=== PATIENT | female | born 1975 | race Caucasian/White ===

== ENCOUNTER 2019-11-17 21:57 | Emergency (ER) | payer SELFPAY ==
[2019-11-17 22:04] VITALS: BP 134/88; PULSE 84; RESP 18; TEMP 36.1; O2SAT 99; BMI 29.0
--- NOTE | 2019-11-17 22:08 | ED_ITS ---
HPI - Extremity Injury (Upper) General: Chief Complaint: Extremity Injury, Upper Stated Complaint: left and injury Time Seen by Provider: 11/17/19 22:07 Source: patient Mode of arrival: ambulatory Limitations: no limitations History of Present Illness: HPI narrative: 44-year-old female comes in with injury to the left hand. Patient reports striking her refrigerator this silvana jeff. Patient comes in tonight due to increased swelling and bruising. Patient appears well. Patient appears in mild to moderate pain. Review of Systems General: Reports: 10 or more systems reviewed and unremarkable except in HPI and below Musc: Reports: extremity pain and extremity swelling [facility] ED PFSH: Social History Smoking and tobacco status: current every day smoker Physical Exam Const: COMMON NORMALS: no apparent distress and oriented x3 GENERAL APPEARANCE: cooperative HENMT: COMMON NORMALS: normocephalic, TM's normal bilaterally and external nose normal HEAD & SCALP: normal to inspection and normocephalic NOSE: external nose normal TYMPANIC MEMBRANE: TM's normal bilaterally MOUTH: oral and palatal mucosa normal THROAT: posterior oropharynx normal Eye: GENERAL EYE: normal appearance of both eyes Neck/C-Spine: COMMON NORMALS: full ROM Lymph: LYMPHATIC: no lymphadenopathy noted Chest: COMMONS NORMALS: inspection of chest normal Resp: COMMON NORMALS: normal respiratory effort EFFORT & INSPECTION: Yes able to speak in complete sentences Cardio: COMMON NORMALS: regular rate and regular rhythm RATE: regular rate RHYTHM: regular rhythm GI: COMMON NORMALS: non-tender : COMMON NORMALS: Yes no CVA tenderness BLADDER/KIDNEY EXAM: Yes no CVA tenderness Back/Pelvis: COMMON NORMALS: no CVA tenderness and thoracic and lumbar spine normal to inspection Extremity: NARRATIVE EXTREMITY EXAM: Swelling and bruising to the dorsal left hand. Normal capillary refill distally. Guarded movement due to pain. Normal warmth and sensation is noted. Neuro: COMMON NORMALS: oriented x3 and moves all extremities Psych: COMMON NORMALS: mental status grossly normal and cooperative Skin: COMMON NORMALS: no rashes or lesions noted GENERAL SKIN EXAM: no rashes or lesions noted Course Vital Signs: Vital signs: Vital Signs Temperature 97.0 F L 11/17/19 22:04 Pulse Rate 84 11/17/19 22:04 Respiratory Rate 18 11/17/19 22:04 Blood Pressure 134/88 11/17/19 22:04 Pulse Oximetry 99 11/17/19 22:04 MDM - Extremity Injury (Upper) MDM Narrative: Medical decision making narrative: Patient comes in today for complaints of injury to the left hand. Patient reports striking her refrigerator this morning and since that time has had increased bruising and swelling to the left hand. On exam we have ecchymosis and central bruising to the dorsal left hand involving the third digit. Prompt capillary refill is noted distally. Guarded movement due to pain. Pulses are intact. X-ray noted no fracture, or dislocation. No sign of open injury was noted. A large contusion with swelling was noted. Reviewed exam with patient recommended treatment for contusion with need for follow-up or return. Patient reported understanding. Discharge Plan Discharge Patient Disposition: Home, Self-Care Clinical Impression: Contusion of hand, left Qualifiers: Encounter type: initial encounter Qualified Code(s): S60.222A - Contusion of left hand, initial encounter Condition: Stable Prescriptions: No Action No Known Home Medications RF: 0 Discharge Orders: Discharge Order (Routine); Ordered 11/17/19 Ordered By: Pranav Comer Referrals: Krystyna Lehman, HERB-C [Primary Care Provider] - Discharge Diet: Usual diet Discharge Activity: Increase activity as tolerated Patient Instructions: Contusion in Adults (ED) Activity Restrictions/Additional Instructions: Wear elastic wrap until swelling resolves Increase activity as tolerated Ice or heat for comfort Acetaminophen and ibuprofen for pain Follow-up as needed Return to ER for worsening symptoms Coding Level of Care Code ED Animal Cruelty Investigation Supervisor for Jhonathan Roman Exam Comprehensive
--- NOTE | 2019-11-17 22:12 | XR_ITS ---
WS: [id number] LEFT HAND: 3 VIEW(S) TECHNIQUE: PA, oblique and lateral. HISTORY: injury COMPARISON: 12/05/2018 No acute fracture or dislocation. Soft tissue swelling over the dorsal hand at the level of the metacarpals. Prior fixation distal radial fracture. XR/XR hand LT min 3V* [id number] IMPRESSION: 1. No acute fracture identified. 2. Soft tissue edema over the dorsal hand.
[2019-11-17 22:55] VITALS: BP 130/87; PULSE 79; RESP 14; O2SAT 98
== END 2019-11-17 22:56 | disposition home or self-care (01) ==
PROVIDERS: Emergency Provider Nurse Practitioner Family; Family Provider Nurse Practitioner; PCP Nurse Practitioner
DX: S60.222A Contusion of left hand, initial encounter (principal); W22.8XXA Striking against or struck by other objects, initial encounter; F17.210 Nicotine dependence, cigarettes, uncomplicated; M79.89 Other specified soft tissue disorders
CPT/HCPCS: 12345; 73130; 99281; 99283

== ENCOUNTER 2020-12-04 11:54 | Emergency (ER) | payer SELFPAY ==
[2020-12-04 12:02] VITALS: BP 132/88; PULSE 79; RESP 18; TEMP 36.6; O2SAT 96; BMI 28.1
--- NOTE | 2020-12-04 12:06 | ED_ITS ---
HPI - Dental/Oral General: Chief complaint: Dental/Oral Stated complaint: R SIDE OF FACE SWOLLEN Time Seen by Provider: 12/04/20 12:06 History of Present Illness: HPI Narrative: Patient comes in with swelling and upper dental pain to the right side of face. Patient appears well. Patient appears in mild to moderate pain. Patient reports symptoms for the last 3 days. Patient has not been on any antibiotic. Patient has been using [id number] Motrin for discomfort. Location: Tooth # (6) Onset (ago): day(s) Duration: intermittent Severity: moderate Relieving factors: NSAIDs Exacerbating factors: nothing Context: history of dental caries Associated symptoms: Reports gum swelling Treatment prior to arrival: oral analgesic Review of Systems General: Reports: 10 or more systems reviewed and unremarkable except in HPI and below ENMT: Reports: dental pain and other [facility] ED PFSH: Social History Smoking and tobacco status: current every day smoker Physical Exam Const: COMMON NORMALS: no acute distress and patient oriented x3 GENERAL APPEARANCE: cooperative HENMT: COMMON NORMALS: TM's normal bilaterally and Normal external nose present HEAD & SCALP: normal to inspection and other (Right side facial swelling) NOSE: Normal external nose present TYMPANIC MEMBRANE: TM's normal bilaterally MOUTH: Normal oral and palatal mucosa present TEETH & GINGIVA: Yes other (Significant tooth decay, decayed to the gumline of #6 tooth with surroundin) THROAT: posterior oropharynx normal Eye: GENERAL EYE: appearance normal, both eyes and all related structures Neck/C-Spine: COMMON NORMALS: full ROM Lymph: LYMPHATIC: no lymphadenopathy noted Chest: COMMONS NORMALS: normal inspection of the chest Resp: COMMON NORMALS: normal respiratory effort EFFORT & INSPECTION: Yes able to speak in complete sentences Cardio: COMMON NORMALS: regular rate and regular rhythm RATE: regular rate RHYTHM: regular rhythm GI: COMMON NORMALS: non-tender Extremity: COMMON NORMALS: normal to inspection Neuro: COMMON NORMALS: patient oriented x3 and moves all extremities Psych: COMMON NORMALS: mental status grossly normal and cooperative Skin: COMMON NORMALS: no rashes or lesions noted GENERAL SKIN EXAM: no rashes or lesions noted Course Vital Signs: Vital signs: Vital Signs Temperature 97.8 F 12/04/20 12:02 Pulse Rate 79 12/04/20 12:02 Respiratory Rate 18 12/04/20 12:02 Blood Pressure 132/88 12/04/20 12:02 Pulse Oximetry 96 12/04/20 12:02 MDM - Dental/Oral MDM Narrative: Medical decision making narrative: 45-year-old female comes in today with right side facial swelling. On exam we note no posterior pharyngeal swelling or asymmetry. Patient does have some gum swelling to the premolar of the right upper jaw with tenderness. Patient does have right side upper facial swelling. Airway is intact. Patient manages secretions well. Differential diagnosis includes dental abscess, dental caries, sinusitis. Patient will be started on Augmentin 875 1 tablet twice daily for the next 7 days. Patient was given one dose in the ER and 10 mg dexamethasone to help with facial swelling. Reviewed exam and recommendations for treatment and follow-up. Stressed importance of dental care and follow-up with dentist. Patient reported understanding. Discharge Plan Discharge Patient Disposition: Home Clinical Impression: Dental abscess Condition: Stable Prescriptions: New Augmentin 875-125 mg tablet 1 tab PO BID Qty: 14 RF: 0 Discharge Orders: Discharge ED (Routine); Ordered 12/04/20 Ordered By: Pranav Comer Referrals: Krystyna Lehman, BUILDING ANALYST/SUPERVISOR-C [Primary Care Provider] - Discharge Diet: Usual diet Discharge Activity: Resume usual activity Patient Instructions: Dental Abscess (ED), Opioid Safety Activity Restrictions/Additional Instructions: Drink plenty of water with medication. Take antibiotic twice a day for the next 7 days. Follow-up with dentist for definitive care. Return to the emergency department for new concerns. Coding Level of Care Code ED Flex O Writer Operator for Jhonathan Roman
[2020-12-04] MEDS: dexamethasone 4 mg Tablet 10 MG PO (12:23)
[2020-12-04] MEDS: amoxicillin-clav 875-125 mg Tablet 1 TAB PO (12:23)
== END 2020-12-04 12:34 | disposition home or self-care (01) ==
LOC: ER 12:46
PROVIDERS: Emergency Provider Nurse Practitioner Family; PCP Nurse Practitioner
DX: K04.7 Periapical abscess without sinus (principal); F17.210 Nicotine dependence, cigarettes, uncomplicated
CPT/HCPCS: 99283; J8540

== ENCOUNTER 2021-08-10 13:06 | Emergency (ER) | payer SELFPAY ==
[2021-08-10 13:33] VITALS: BP 112/78; PULSE 87; RESP 18; TEMP 36.8; O2SAT 97; BMI 29.0
--- NOTE | 2021-08-10 13:33 | XR_ITS ---
WS: [id number] Portable AP upright chest, 08/10/2021 Clinical Data: sob Comparison: Portable chest, 07/04/2018. Findings: No nodules, masses or effusions are seen. The heart is normal. The pulmonary vascularity is not increased. No pneumonia or pneumothorax is seen. XR/XR chest 1V portable [id number] Impression: Negative chest.
[2021-08-10 14:24] LABS: Basophils % 0.5 %; Eosinophils # 0.1 10^3/uL (0.0-0.8); Eosinophils % 1.1 %; Hematocrit 39.3 % (37.0-47.0); Hemoglobin 13.1 g/dL (11.5-15.3); Lymphocytes # 1.2 10^3/uL (0.8-4.8); Lymphocytes % 19.2 %; Mean Corpuscular HGB Conc 33.3 g/dL (30.0-36.0); Mean Corpuscular Hemoglobin 33.3 pg (28.0-34.0); Mean Platelet Volume 9.9 fL (7.4-10.4); Monocytes # 0.4 10^3/uL (0.2-0.9); Neutrophils # 4.41 10^3/uL (1.8-7.7); Neutrophils % 71.9 %; Nucleated Red Blood Cells % 0 %; Platelet Count 168 10^3/cmm (130-400); Red Blood Count 3.93 10^6/uL (4.1-5.3); Red Cell Distribution Width 14.5 % (12.1-15.1); White Blood Count 6.1 10^3/uL (4.0-10.0)
[2021-08-10 14:41] LABS: HCG, Serum Qual Negative (Negative)
[2021-08-10 14:44] LABS: Alanine Aminotransferase 343 U/L (0-33); Albumin Level 4.2 g/dL (3.5-5.2); Alkaline Phosphatase 201 IU/L (35-105); Anion Gap 19.2 (5-19); Aspartate Amino Transferase 486 U/L (0-32); Blood Urea Nitrogen 8 mg/dL (6-20); Calcium 8.3 mg/dL (8.5-10.5); Carbon Dioxide 23 mmol/L (22-29); Chloride 101 mmol/L (98-107); Globulin 2.8 g/dL (1.3-4.6); Glomerular Filtration Rate 174.2 mL/min (90-130); Glucose 95 mg/dL (65-115); Osmolality Calculated 288 mOsm/kg (285-295); Potassium 3.2 mmol/L (3.5-5.1); Sodium 140 mmol/L (136-145); Total Bilirubin 0.2 mg/dL (0.15-1.2)
[2021-08-10 14:51] LABS: Procalcitonin 0.03 ng/mL (0-0.5)
[2021-08-10 15:44] LABS: Hepatitis A Antibody IgM Non-Reactive (Nonreactive); Hepatitis B Core IgM Non-Reactive (Nonreactive); Hepatitis B Surface Antigen Non-Reactive (Nonreactive); Hepatitis C Virus Antibody Reactive (Nonreactive)
--- NOTE | 2021-08-10 18:26 | ECG_ITS ---
[facility] Test Date: 2021-08-10 Pat Name: Adriana Presley Department: Room: Gender: Female [employer] Field Agent: : [id number] Requested By: Demarcus Singleton Order Number: [id number] Hough MD: Clarisse Smiley M.D. Measurements Intervals [place] Rate: 79 P: 18 [place]: 142 QRS: -5 QRSD: 99 T: 34 QT: 408 QTc: 470 Interpretive Statements SINUS RHYTHM MINIMAL VOLTAGE CRITERIA FOR LVH, CONSIDER NORMAL VARIANT [MEETS CRITERIA IN ONE OF: R(aVL), S(V1), R(V5), R(V5/V6)+S(V1)] Compared to ECG 07/04/2018 23:24:11 No significant changes Electronically Signed On 08-11-2021 20:32:55 MOUNTAIN SERVICES MANAGER by Clarisse Smiley M.D. [email or web address]
--- NOTE | 2021-08-10 18:31 | W.ED.SOB ---
HPI - SOB/Dyspnea General: Chief Complaint: Shortness of Breath/Dyspnea Stated Complaint: sob Time Seen by Provider: 08/10/21 18:21 Source: patient Mode of arrival: ambulatory Limitations: no limitations History of Present Illness: HPI Narrative: 35-year-old female who states been having right-sided chest pain over the last week to 2 weeks. States the very sharp pain in her right lateral chest much worse with deep breaths movement or palpation. States it caused her some dyspnea because it hurts when she takes a deep breath then no nausea no vomiting no diaphoresis no recent long trips no recent surgeries MD elicited complaint: chest pain Onset (ago): week(s) Timing: constant Severity: moderate Exacerbating factors: movement and inspiration Relieving factors: rest Associated symptoms: Reports chest pain; Deny abdominal pain, fever(s), nausea or vomiting Review of Systems Const: Denies: fever(s), chills, body aches or change in appetite Eyes: Denies: blurry vision or eye discomfort ENMT: Denies: throat pain or dental pain Card: Reports: chest pain Resp: Reports: dyspnea GI: Denies: abdominal pain, nausea, vomiting or diarrhea : Denies: dysuria Musc: Denies: neck pain or back pain Skin/Breast: Denies: rash Neuro: Denies: headache(s) Psych: Denies: depression Duong/Lymph: Denies: easy bruising All/Imm: Denies: urticaria PFSH ED PFSH: Family History (Updated 08/10/21 @ 18:33 by Demarcus Singleton MD) Denies family history of Anesthesia complication Bleeding disorder Social History Smoking and tobacco status: current every day smoker Physical Exam Const: COMMON NORMALS: no acute distress, patient oriented x3 and healthy appearing HENMT: COMMON NORMALS: normocephalic and atraumatic HEAD & SCALP: normocephalic and atraumatic Eye: COMMON NORMALS: Equal, round and reactive pupils present and EOMs intact bilaterally PUPIL: Yes Equal, round and reactive pupils present Neck/C-Spine: COMMON NORMALS: full ROM and supple Chest: COMMONS NORMALS: normal inspection of the chest OTHER: point tender over right chest reproduces pain Resp: COMMON NORMALS: normal respiratory effort, No retractions, No use of accessory muscles and clear to auscultation bilaterally AUSCULTATION: clear to auscultation bilaterally Cardio: COMMON NORMALS: regular rate, regular rhythm and No murmurs present (Cardio) RATE: regular rate RHYTHM: regular rhythm GI: COMMON NORMALS: Normal to inspection, nondistended, normoactive bowel sounds present, Soft to palpation, non-tender and no masses PALPATION: Yes Soft to palpation Extremity: COMMON NORMALS: normal to inspection and full ROM Neuro: COMMON NORMALS: patient oriented x3, moves all extremities and no focal motor deficits Psych: COMMON NORMALS: mental status grossly normal, Normal thought process present and cooperative THOUGHT PROCESS: Normal thought process present Skin: COMMON NORMALS: no rashes or lesions noted and no wounds GENERAL SKIN EXAM: no rashes or lesions noted Course Vital Signs: Vital signs: Vital Signs Temperature 98.2 F 08/10/21 18:45 Pulse Rate 78 08/10/21 18:45 Respiratory Rate 18 08/10/21 18:45 Blood Pressure 156/105 08/10/21 18:45 Pulse Oximetry 99 08/10/21 18:45 MDM - SOB/Dyspnea MDM Narrative: Medical decision making narrative: Patient presents for chest pain is likely muscular in nature she is point tender over the right chest wall. Patient is well-appearing here troponins are normal she has no signs of pulmonary embolism x-ray here is normal she has not been following anyone for hepatitis C we will get her follow-up with Dr. Carreno she is to return if worsening. Lab Data: Labs: Lab Results 08/10/21 08/10/21 08/10/21 14:15 14:15 14:15 WBC 6.1 10^3/uL 10^3/ uL (4.0-10.0) RBC 3.93 10^6/uL L 10 ^6/uL (4.1-5.3) Hgb 13.1 g/dL g/dL (11.5-15.3) Hct 39.3 % % (37.0-47.0) MCV 100.0 fl H fl (81-99) MCH 33.3 pg pg (28.0-34.0) MCHC 33.3 g/dL g/dL (30.0-36.0) RDW 14.5 % % (12.1-15.1) Plt Count 168 10^3/cmm 10^3 /cmm (130-400) MPV 9.9 fL fL (7.4-10.4) Neut % (Auto) 71.9 % % Lymph % (Auto) 19.2 % % Divide % (Auto) 7.0 % % Eos % (Auto) 1.1 % % Baso % (Auto) 0.5 % % Neut # (Auto) 4.41 10^3/uL 10^3 /uL (1.8-7.7) Lymph # (Auto) 1.2 10^3/uL 10^3/ uL (0.8-4.8) Divide # (Auto) 0.4 10^3/uL 10^3/ uL (0.2-0.9) Eos # (Auto) 0.1 10^3/uL 10^3/ uL (0.0-0.8) Baso # (Auto) 0.0 10^3/uL 10^3/ uL (0.0-0.1) Nucleated RBC % (a uto) 0 % % Nucleated RBCs # 0.0 /100WBC /100W BC Sodium 140 mmol/L mmol/L (136-145) Potassium 3.2 mmol/L L mmol /L (3.5-5.1) Chloride 101 mmol/L mmol/L (98-107) Carbon Dioxide 23 mmol/L mmol/L (22-29) Anion Gap 19.2 H (5-19) BUN 8 mg/dL mg/dL (6-20) Creatinine 0.4 mg/dL L mg/dL (0.5-0.9) GFR Calculation 174.2 mL/min H mL /min (90-130) Glucose 95 mg/dL mg/dL (65-115) Calculated Osmolal ity 288 mOsm/kg mOsm/ kg (285-295) Calcium 8.3 mg/dL L mg/dL (8.5-10.5) Total Bilirubin 0.2 mg/dL mg/dL (0.15-1.2) AST 486 U/L H U/L (0-32) ALT 343 U/L H U/L (0-33) Alkaline Phosphata se 201 IU/L H IU/L (35-105) Troponin T Baselin e Troponin T 120 Min telida Delta Troponin T Total Protein 7.0 g/dL g/dL (6.6-8.7) Albumin 4.2 g/dL g/dL (3.5-5.2) Globulin 2.8 g/dL g/dL (1.3-4.6) Procalcitonin 0.03 ng/mL ng/mL (0-0.5) HCG, Qual Negative (Negative) Hepatitis A IgM Ab Hep Bs Antigen Hep B Core IgM Ab Hepatitis C Antibo dy 08/10/21 08/10/21 08/10/21 14:15 14:15 18:41 WBC RBC Hgb Hct MCV MCH MCHC RDW Plt Count MPV Neut % (Auto) Lymph % (Auto) Div[place] % (Auto) Eos % (Auto) Baso % (Auto) Neut # (Auto) Lymph # (Auto) [place] # (Auto) Eos # (Auto) Baso # (Auto) Nucleated RBC % (a uto) Nucleated RBCs # Sodium Potassium Chloride Carbon Dioxide Anion Gap BUN Creatinine GFR Calculation Glucose Calculated Osmolal ity Calcium Total Bilirubin AST ALT Alkaline Phosphata se Troponin T Baselin e 6 ng/L ng/L (0-10) Troponin T 120 Min telida 6.00 ng/L ng/L (0-10) Delta Troponin T TNP Total Protein Albumin Globulin Procalcitonin HCG, Qual Hepatitis A IgM Ab Non-reactive (Nonreactive) Hep Bs Antigen Non-reactive (Nonreactive) Hep B Core IgM Ab Non-reactive (Nonreactive) Hepatitis C Antibo dy Reactive H (Nonreactive) Imaging Data^: CXR: Attestation: I personally reviewed and interpreted this imaging study as follows: My impression: no acute abnormality EKG Data^: EKG 1: Attestation: I personally reviewed and interpreted this EKG as follows: EKG Interpretation Date: 08/10/21 EKG interpretation time: 18:27 Interpretation: nsr hr [address] or t wave abnormalities qrs 99 qtc 443 Discharge Plan Discharge Patient Disposition: Home Clinical Impression: Chest wall pain, Hepatitis C Condition: Stable Prescriptions: New Naprosyn 500 mg tablet 500 mg PO BID PRN (Reason: pain) Qty: 20 RF: 0 Vistaril 50 mg capsule 50 mg PO Q8H PRN (Reason: anxiety) Qty: 20 RF: 0 No Action Augmentin 875-125 mg tablet 1 tab PO BID Qty: 14 RF: 0 diclofenac potassium 50 mg tablet 50 mg PO Q8H PRN (Reason: pain) Qty: 10 RF: 0 Discharge Orders: Discharge ED (Routine); Ordered 08/10/21 Ordered By: Demarcus Singleton Referrals: Owen Carreno MD [Physician] - 1-3 days Discharge Diet: Advance as tolerated Discharge Activity: Resume usual activity Patient Instructions: Hepatitis C (ED), Chest Wall Pain (ED) Coding Level of Care Code ED Recycling Operator for Chg Fwd Exam Comprehensive
[2021-08-10 18:41] VITALS: RESP 18
[2021-08-10] MEDS: morphine 4 mg/mL SDV 1 mL IVP (18:41)
[2021-08-10] MEDS: ondansetron 2 mg/ML SDV 2 mL 4 MG IVP (18:42)
[2021-08-10 18:45] VITALS: BP 156/105; PULSE 78; RESP 18; TEMP 36.8; O2SAT 99
--- NOTE | 2021-08-10 18:49 | PC.NURSE ---
patient arrival with c/o SOB and increased pain with respirations. reports N/V/D today. reports cough but can not get up phlegm. states s/s started 2 weeks ago. right chest wall tender to palptaion. IV staerted blood sent to lab. tele in place.
[2021-08-10 19:00] LABS: Troponin(5th) Baseline 6 ng/L (0-10)
[2021-08-10 19:49] VITALS: RESP 18; TEMP 37.1
[2021-08-10 19:50] VITALS: BP 126/86; PULSE 72; RESP 18; TEMP 36.8; O2SAT 98
--- NOTE | 2021-08-12 10:49 | PC.SOCIAL ---
Addendum entered by Nahomi Salinas 09/09/21 10:12: Patient had a follow up appointment scheduled for 08.25.21 - this appointment was cancelled. Original Note: follow up appointment made for patient with Dr. Carreno for 08-25 @1400. Called and gave pt appointment date and time along with directions to clinic.
== END 2021-08-10 19:52 | disposition home or self-care (01) ==
PROVIDERS: Physician Assistant; Emergency Provider Emergency Medicine
DX: R07.89 Other chest pain (principal); B19.20 Unspecified viral hepatitis C without hepatic coma; F17.210 Nicotine dependence, cigarettes, uncomplicated
CPT/HCPCS: 36415; 71045; 80053; 80074; 84145; 84484; 84703; 85025; 93005; 96374; 96375; 99284; 99291; 99292; J2270; J2405

== ENCOUNTER 2021-08-26 00:01 | Inpatient (IN) | payer SELFPAY ==
[2021-08-26] VITALS (9 sets, daily range): BP systolic 100–135; BP diastolic 64–81; PULSE 67–84; RESP 17–18; TEMP 36.6–37; O2SAT 95–99; BMI 31.3
--- NOTE | 2021-08-26 00:39 | W.ED.PSYCHS ---
HPI - Psych General: Chief Complaint: Psychiatric Symptoms Stated Complaint: SI Time Seen by Provider: 08/26/21 00:12 Source: patient Mode of arrival: ambulatory Limitations: no limitations History of Present Illness: HPI Narrative: 45-year-old female who please recalled residence that she was suicidal patient had a knife and was threatening to cut her left wrist and attempt to kill her self patient states that she has been severely depressed and just does not want to live anymore. She states she was going to cut her wrist to kill her self. She denies any worsening improving factors. Associated symptoms: Reports suicidal ideation Review of Systems Const: Denies: fever(s), chills, body aches or change in appetite Eyes: Denies: blurry vision or eye discomfort ENMT: Denies: throat pain or dental pain Card: Denies: chest pain Resp: Denies: dyspnea GI: Denies: abdominal pain, nausea, vomiting or diarrhea : Denies: dysuria Musc: Denies: neck pain or back pain Skin/Breast: Denies: rash Neuro: Denies: headache(s) Psych: Reports: suicidal ideation Duong/Lymph: Denies: easy bruising All/Imm: Denies: urticaria PFSH ED PFSH: Family History Denies family history of Anesthesia complication Bleeding disorder Social History Smoking and tobacco status: current every day smoker Physical Exam Const: COMMON NORMALS: no acute distress, patient oriented x3 and healthy appearing HENMT: COMMON NORMALS: normocephalic and atraumatic HEAD & SCALP: normocephalic and atraumatic Eye: COMMON NORMALS: Equal, round and reactive pupils present and EOMs intact bilaterally PUPIL: Yes Equal, round and reactive pupils present Neck/C-Spine: COMMON NORMALS: full ROM and supple Chest: COMMONS NORMALS: normal inspection of the chest and normal palpation of entire chest wall Resp: COMMON NORMALS: normal respiratory effort, No retractions, No use of accessory muscles and clear to auscultation bilaterally AUSCULTATION: clear to auscultation bilaterally Cardio: COMMON NORMALS: regular rate, regular rhythm and No murmurs present (Cardio) RATE: regular rate RHYTHM: regular rhythm GI: COMMON NORMALS: Normal to inspection, nondistended, normoactive bowel sounds present, Soft to palpation, non-tender and no masses PALPATION: Yes Soft to palpation Extremity: COMMON NORMALS: normal to inspection and full ROM Neuro: COMMON NORMALS: patient oriented x3, moves all extremities and no focal motor deficits Psych: COMMON NORMALS: mental status grossly normal, Normal thought process present and cooperative THOUGHT PROCESS: Normal thought process present Skin: COMMON NORMALS: no rashes or lesions noted and no wounds GENERAL SKIN EXAM: no rashes or lesions noted Course Vital Signs: Vital signs: Vital Signs Temperature 97.8 F 08/26/21 01:18 Pulse Rate 80 08/26/21 01:18 Respiratory Rate 18 08/26/21 01:18 Blood Pressure 135/74 08/26/21 01:18 Pulse Oximetry 95 08/26/21 01:18 MDM - Psych Lab Data: Labs: Lab Results 08/26/21 08/26/21 08/26/21 00:52 00:52 00:58 WBC RBC Hgb Hct MCV MCH MCHC RDW Plt Count MPV Neut % (Auto) Lymph % (Auto) [place] % (Auto) Eos % (Auto) Baso % (Auto) Neut # (Auto) Lymph # (Auto) [place] # (Auto) Eos # (Auto) Baso # (Auto) Nucleated RBC % (a uto) Nucleated RBCs # Sodium 140 mmol/L mmol/L (136-145) Potassium 3.2 mmol/L L mmol /L (3.5-5.1) Chloride 103 mmol/L mmol/L (98-107) Carbon Dioxide 19 mmol/L L mmol/ L (22-29) Anion Gap 21.2 H (5-19) BUN 6 mg/dL mg/dL (6-20) Creatinine 0.3 mg/dL L mg/dL (0.5-0.9) GFR Calculation 242.8 mL/min H mL /min (90-130) Glucose 102 mg/dL mg/dL (65-115) Calculated Osmolal ity 288 mOsm/kg mOsm/ kg (285-295) Calcium 8.7 mg/dL mg/dL (8.5-10.5) Total Bilirubin 0.3 mg/dL mg/dL (0.15-1.2) AST 146 U/L H U/L (0-32) ALT 93 U/L H U/L (0-33) Alkaline Phosphata se 176 IU/L H IU/L (35-105) Total Protein 7.4 g/dL g/dL (6.6-8.7) Albumin 4.6 g/dL g/dL (3.5-5.2) Globulin 2.8 g/dL g/dL (1.3-4.6) HCG, Qual Negative (Negative) Salicylates < 0.3 mg/dL L mg/ dL (3-10) Urine Opiates Scre en Negative ng/mL ng /mL (Negative) Acetaminophen < 5.0 ug/mL L ug/ mL (10-30) Ur Barbiturates Sc reen Negative ng/mL ng /mL (Negative) Ur Phencyclidine S crn Negative ng/mL ng /mL (Negative) Ur Amphetamines Sc reen Negative ng/mL ng /mL (Negative) U Benzodiazepines Scrn Negative ng/mL ng /mL (Negative) Urine Cocaine Scre en Negative ng/mL ng /mL (Negative) U Marijuana (THC) Screen Negative ng/mL ng /mL (Negative) Ethyl Alcohol 310 mg/dL H* mg/d L (0-10) 08/26/21 00:58 WBC 7.3 10^3/uL 10^3/ uL (4.0-10.0) RBC 4.58 10^6/uL 10^6 /uL (4.1-5.3) Hgb 15.4 g/dL H g/dL (11.5-15.3) Hct 48.4 % H % (37.0-47.0) MCV 105.7 fl H fl (81-99) MCH 33.6 pg pg (28.0-34.0) MCHC 31.8 g/dL g/dL (30.0-36.0) RDW 14.0 % % (12.1-15.1) Plt Count 194 10^3/cmm 10^3 /cmm (130-400) MPV 10.5 fL H fL (7.4-10.4) Neut % (Auto) 57.2 % % Lymph % (Auto) 32.6 % % [place] % (Auto) 8.3 % % Eos % (Auto) 1.1 % % Baso % (Auto) 0.7 % % Neut # (Auto) 4.15 10^3/uL 10^3 /uL (1.8-7.7) Lymph # (Auto) 2.4 10^3/uL 10^3/ uL (0.8-4.8) [place] # (Auto) 0.6 10^3/uL 10^3/ uL (0.2-0.9) Eos # (Auto) 0.1 10^3/uL 10^3/ uL (0.0-0.8) Baso # (Auto) 0.1 10^3/uL 10^3/ uL (0.0-0.1) Nucleated RBC % (a uto) 0 % % Nucleated RBCs # 0.0 /100WBC /100W BC Sodium Potassium Chloride Carbon Dioxide Anion Gap BUN Creatinine GFR Calculation Glucose Calculated Osmolal ity Calcium Total Bilirubin AST ALT Alkaline Phosphata se Total Protein Albumin Globulin HCG, Qual Salicylates Urine Opiates Scre en Acetaminophen Ur Barbiturates Sc reen Ur Phencyclidine S crn Ur Amphetamines Sc reen U Benzodiazepines Scrn Urine Cocaine Scre en U Marijuana (THC) Screen Ethyl Alcohol Discharge Plan Discharge Patient Disposition: Admitted As Inpatient Clinical Impression: Suicidal ideation Condition: Stable Coding Level of Care Code ED Steel Erector Apprentice for Jhonathan Fwd Exam Comprehensive
[2021-08-26 01:04] LABS: Basophils # 0.1 10^3/uL (0.0-0.1); Basophils % 0.7 %; Eosinophils # 0.1 10^3/uL (0.0-0.8); Eosinophils % 1.1 %; Hematocrit 48.4 % (37.0-47.0); Hemoglobin 15.4 g/dL (11.5-15.3); Lymphocytes # 2.4 10^3/uL (0.8-4.8); Lymphocytes % 32.6 %; Mean Corpuscular HGB Conc 31.8 g/dL (30.0-36.0); Mean Corpuscular Hemoglobin 33.6 pg (28.0-34.0); Mean Corpuscular Volume 105.7 fl (81-99); Mean Platelet Volume 10.5 fL (7.4-10.4); Monocytes # 0.6 10^3/uL (0.2-0.9); Monocytes % 8.3 %; Neutrophils # 4.15 10^3/uL (1.8-7.7); Neutrophils % 57.2 %; Nucleated Red Blood Cells % 0 %; Platelet Count 194 10^3/cmm (130-400); Red Blood Count 4.58 10^6/uL (4.1-5.3); White Blood Count 7.3 10^3/uL (4.0-10.0)
[2021-08-26 01:08] LABS: HCG Qualitative Urine. Negative (Negative)
[2021-08-26] MEDS: LORazepam 1 mg Tablet 2 MG PO (01:18)
[2021-08-26] MEDS: nicotine 21 mg Patch 1 PATCH TRANSDERMA (01:18)
[2021-08-26 01:24] LABS: Alanine Aminotransferase 93 U/L (0-33); Albumin Level 4.6 g/dL (3.5-5.2); Alkaline Phosphatase 176 IU/L (35-105); Anion Gap 21.2 (5-19); Aspartate Amino Transferase 146 U/L (0-32); Blood Urea Nitrogen 6 mg/dL (6-20); Calcium 8.7 mg/dL (8.5-10.5); Carbon Dioxide 19 mmol/L (22-29); Chloride 103 mmol/L (98-107); Globulin 2.8 g/dL (1.3-4.6); Glomerular Filtration Rate 242.8 mL/min (90-130); Glucose 102 mg/dL (65-115); Osmolality Calculated 288 mOsm/kg (285-295); Potassium 3.2 mmol/L (3.5-5.1); Sodium 140 mmol/L (136-145); Total Bilirubin 0.3 mg/dL (0.15-1.2); Total Protein 7.4 g/dL (6.6-8.7)
[2021-08-26 01:25] LABS: Acetaminophen < 5.0 ug/mL (10-30); Salicylate < 0.3 mg/dL (3-10)
[2021-08-26 01:26] LABS: Alcohol Level 310 mg/dL (0-10)
[2021-08-26 01:33] LABS: Amphetamines Screen Urine Negative (Negative); Barbiturates Screen Urine Negative (Negative); Benzodiazepines Screen Urine Negative (Negative); Cocaine Screen Urine Negative (Negative); Opiate Screen Urine Negative (Negative); PCP Screen Urine Negative (Negative); THC Screen Urine Negative (Negative)
[2021-08-26] MEDS: ketorolac 30 mg/mL INJ 15 MG IVP (02:30)
[2021-08-26] MEDS: hyDROXYzine 25 mg Capsule 50 MG PO ×3 (04:07→20:49)
[2021-08-26] MEDS: folic acid 1 mg Tablet PO (09:26)
[2021-08-26] MEDS: multivitamin therapeutic Tablet 1 TAB PO (09:26)
[2021-08-26] MEDS: thiamine 100 mg Tablet PO (09:26)
--- NOTE | 2021-08-26 12:33 | P.NPUHP_ITS ---
Providers/Chief Complaint Admitting Physician: Miguel David MD Chief Complaint: SI HPI NPU History of Present Illness Adriana Presley is a 45 year old female who was admitted to our emergency department through the following report: General: Chief Complaint: Psychiatric Symptoms Stated Complaint: SI Time Seen by Provider: 08/26/21 00:12 Source: patient Mode of arrival: ambulatory Limitations: no limitations History of Present Illness: HPI Narrative: 45-year-old female who please recalled residence that she was suicidal patient had a knife and was threatening to cut her left wrist and attempt to kill her self patient states that she has been severely depressed and just does not want to live anymore. She states she was going to cut her wrist to kill her self. She denies any worsening improving factors. Associated symptoms: Reports suicidal ideation She was admitted for definitive treatment of her issues. She says that she has been drinking heavily since 2008 when her brother was killed in a motor vehicle accident. He was on her way to a birthday republican for her that he was throwing. She felt guilty about that for a number of years. 3 years ago she attempted suicide by slashing her wrist with a traffic engineering technician knife. She got rid of the traffic engineering technician knives in her house. Last year was a bad year for her with some deaths in the family and she lost her job. She says about 2 weeks ago she prayed and have a revelation that she needed to stop drinking and spending so much money on alcohol so that she could have a better life. She was drinking a 1.5 L bottle of whiskey a day up until that point. She said that she had been doing that most of the time for the last 12 years. She cut down to a pint per day for the last few days. She had a plan to stop drinking. She has had uterine cancer pre viously and had a hysterectomy. That cancer diagnosis started with a phone call about blood work. She got a phone call yesterday with some bad news about blood work yesterday. They said that her enzymes were down and that her white blood count was low. She panicked and said something about that she was going to . Her significant other misinterpreted that and thought that she said that she was going to cut herself with a knife. At least that is what she is saying now. She denies having any depression recently. She says that she has been functioning well and is excited about not drinking. Blood alcohol level was 305 in the emergency room. She says that she only had 4 shots of whiskey yesterday. Meds NPU Home Medications Medication Instructions Recorded Confirmed Last Taken Type No Known Home Medications 08/26/21 08/26/21 Unknown History Allergies Allergy/AdvReac Type Severity Reaction Status Date / Time No Known Allergies Allergy Verified 08/10/21 13:33 PFSH NPU PFSH: Family History Denies family history of Anesthesia complication Bleeding disorder Social History Smoking and tobacco status: current every day smoker Mental Status Exam MSE Comments: This is a 45-year-old overweight female who appears approximately her stated age who is in no acute distress. He is dressed in hospital scrubs with fair grooming. She is pleasant and cooperative with the evaluation. psychomotor activity normal. Speech is at a regular rate and rhythm, normal volume, good articulation, not pressured. Alert, oriented X3 Attention and concentration good. Memory is intact Mood is good. Affect is euthymic. Thought process is logical and goal-directed. Thought content: Denies auditory and visual hallucinations. No delusions or paranoia are noted. No current suicidal ideation, and no homicidal ideation. Fund of knowledge is average. Insight and judgment appear to be impaired. Impulse control is impaired. Vitals/I&O/Wt Last Vital Signs Temp 98.2 F 08/26/21 06:40 Pulse 83 08/26/21 06:40 Resp 18 08/26/21 06:40 BP 100/64 08/26/21 06:40 Pulse Ox 99 08/26/21 06:40 Weight last 48 hrs Weight 90.718 kg Data NPU : 08/26/21 00:58 08/26/21 00:58 A&P Assessment and plan (1) Alcohol dependence: Status: Acute Qualifiers: Substance use status: with intoxication Complication of substance-ayesha evelyne condition: uncomplicated Qualified Code(s): F10.220 - Alcohol dependence with intoxication, uncomplicated (2) Suicidal ideation: Status: Acute Involuntary Hold Information 96 Hour Hold: 96 Hour Involuntary Admission: Yes 96 Hour Hold Ending Date: 09/01/21 96 Hour Hold Ending Time: 00:25 Attestations NPU Medical Necessity Statement*: Inpatient hospitalization is medically necessary and the clinically appropriate intervention at this time. We will initiate medications and make changes as indicated. She will be in the hospital for over 2 midnights. Likely length of stay 4-6 days Coding Level of Care Code Acute Sales Merchandise Associate for Jhonathan Roman Diagnoses Alcohol dependence F10.220 Substance use status: with intoxication Complication of substance-induced condition: uncomplicated Suicidal ideation R45.85
--- NOTE | 2021-08-26 12:49 | PC.NURSE ---
pt c/o anxiety and requested medication to treat symptoms, PO vistaril given. will continue to monitor
[2021-08-26] MEDS: nicotine 2 mg Gum BUCCAL (17:18)
[2021-08-26] MEDS: trazodone 50 mg Tablet PO (20:49)
--- NOTE | 2021-08-27 02:54 | PC.NURSE ---
PRN administration Patient c/o of trouble sleeping and restlessness. Requested PRN trazodone and hydroxyzine PO, given as ordered with noted effectiveness.
[2021-08-27 06:00] VITALS: BP 121/86; PULSE 71; RESP 20; TEMP 36.6; O2SAT 98
[2021-08-27] MEDS: folic acid 1 mg Tablet PO (09:12)
[2021-08-27] MEDS: multivitamin therapeutic Tablet 1 TAB PO (09:12)
[2021-08-27] MEDS: thiamine 100 mg Tablet PO (09:12)
[2021-08-27] MEDS: nicotine 21 mg Patch 1 PATCH TRANSDERMA (09:29)
--- NOTE | 2021-08-27 11:51 | W.PM.NPUDCS ---
Diagnoses at Discharge Discharge Diagnosis (1) Alcohol dependence: Status: Acute Qualifiers: Substance use status: with intoxication Complication of substance-induced condition: uncomplicated Qualified Code(s): F10.220 - Alcohol dependence with intoxication, uncomplicated (2) Suicidal ideation: Status: Acute Reason for Visit Reason for Visit: SI Brief History: Adriana Presley is a 45 year old female who was admitted to our emergency department through the following report: General: Chief Complaint: Psychiatric Symptoms Stated Complaint: SI Time Seen by Provider: 08/26/21 00:12 Source: patient Mode of arrival: ambulatory Limitations: no limitations History of Present Illness: HPI Narrative: 45-year-old female who please recalled residence that she was suicidal patient had a knife and was threatening to cut her left wrist and attempt to kill her self patient states that she has been severely depressed and just does not want to live anymore. She states she was going to cut her wrist to kill her self. She denies any worsening improving factors. Associated symptoms: Reports suicidal ideation She was admitted for definitive treatment of her issues. She says that she has been drinking heavily since 2008 when her brother was killed in a motor vehicle accident. He was on her way to a birthday republican for her that he was throwing. She felt guilty about that for a number of years. 3 years ago she attempted suicide by slashing her wrist with a latin american studies professor knife. She got rid of the latin american studies professor knives in her house. Last year was a bad year for her with some deaths in the family and she lost her job. She says about 2 weeks ago she prayed and have a revelation that she needed to stop drinking and spending so much money on alcohol so that she could have a better life. She was drinking a 1.5 L bottle of whiskey a day up until that point. She said that she had been doing that most of the time for the last 12 years. She cut down to a pint per day for the last few days. She had a plan to stop drinking. She has had uterine cancer previously and had a hysterectomy. That cancer diagnosis started with a phone call about blood work. She got a phone call yesterday with some bad news about blood work yesterday. They said that her enzymes were down and that her white blood count was low. She panicked and said something about that she was going to . Her significant other misinterpreted that and thought that she said that she was going to cut herself with a knife. At least that is what she is saying now. She denies having any depression recently. She says that she has been functioning well and is excited about not drinking. Blood alcohol level was 305 in the emergency room. She says that she only had 4 shots of whiskey yesterday. Hospital Course Hospital Course She slowly acclimated to the individual, group and milieu therapies provided. She was observed just on as needed medications. She felt that the trazodone was helpful. She did not need Ativan for alcohol withdrawal. She showed steady improvement during her stay. She was able to contract for safety outside hospital prior to discharge. During the hospitalization, patient had routine laboratory studies which were within normal limits except for few outliers. Additionally there was a general medical evaluation which was also within normal limits and revealed no new acute processes. Discharge Summary: At the time of discharge, lethality was denied. Mood and anxiety were well managed. Patient endorsed a plan to follow-up with the aftercare recommendations of the treatment team. Patient was evaluated and deemed to be absent credible lethality, and had achieved the maximum benefit from an inpatient hospitalization, so was discharged. Involuntary Hold Information 96 Hour Hold: 96 Hour Involuntary Admission: Yes 96 Hour Hold Ending Date: 09/01/21 96 Hour Hold Ending Time: 00:25 Mental Status Exam MSE Comments: This is a 45-year-old overweight female who appears approximately her stated age who is in no acute distress. He is dressed in hospital scrubs with fair grooming. She is pleasant and cooperative with the evaluation. psychomotor activity normal. Speech is at a regular rate and rhythm, normal volume, good articulation, not pressured. Alert, oriented X3 Attention and concentration good. Memory is intact Mood is good. Affect is euthymic. Thought process is logical and goal-directed. Thought content: Denies auditory and visual hallucinations. No delusions or paranoia are noted. No current suicidal ideation, and no homicidal ideation. Fund of knowledge is average. Insight and judgment appear to be impaired. Impulse control is impaired. Cognition: Patient Appearance: Appropriate Level of Consciousness: Awake, Alert, Appropriate and Follows Commands Patient Cognition Impaired: No Ability to Follow Directions: Good Patient Orientation (long list): Person, Place, Time and Name Comprehension Ability: No Impairment Hallucination Type: None Delusion Description: Not Present Thought Process: Appropriate Affect: Affect Description: Calm Depressive Symptoms: Feelings of Worthlessness, Hopelessness and Unhappiness Behavior: Patient Behavior: Cooperative Speech Pattern: Clear Discharge Data Vitals: Last Vital Signs Temp 98 F 08/27/21 06:00 Pulse 71 08/27/21 06:00 Resp 20 H 08/27/21 06:00 BP 121/86 08/27/21 06:00 Pulse Ox 98 08/27/21 06:00 Discharge Plan Discharge Patient Disposition: Home Condition: Stable Prescriptions: New trazodone 50 mg Tablet 50 mg PO BEDTIME PRN (Reason: Sleep) 30 Days Qty: 30 RF: 0 No Action No Known Home Medications RF: 0 Discharge Orders: Discharge Order (Routine); Ordered 08/27/21 Ordered By: Miguel David Referrals: [facility] [Other] Discharge Diet: Regular Discharge Activity: Resume usual activity Patient Instructions: Opioid Safety Discharge Attestations NPU Time Spent in Discharge Care*: less than 30 min Specific Discharge Activities: Specific discharge activities: educating patient, discussing with bilingual case manager/social workers/dc planners, documenting/other paperwork and evaluating patient/reviewing data Coding Level of Care Code Acute Chg FW DC note Diagnoses Alcohol dependence F10.220 Substance use status: with intoxication Complication of substance-induced condition: uncomplicated Suicidal ideation R45.852
[2021-08-27 12:10] VITALS: BP 121/86; PULSE 71; RESP 20; TEMP 36.6; O2SAT 98
== END 2021-08-27 13:29 | disposition home or self-care (01) | DRG 897 ==
LOC: ER 02:03 → NP 02:14
PROVIDERS: Admitting Provider Psychiatry & Neurology Psychiatry; Emergency Provider Emergency Medicine; Visit Provider Psychiatry & Neurology Psychiatry
DX: F10.229 Alcohol dependence with intoxication, unspecified (principal); R45.851 Suicidal ideations; Y90.8 Blood alcohol level of 240 mg/100 ml or more; F32.A Depression, unspecified; F17.210 Nicotine dependence, cigarettes, uncomplicated; Z85.42 Personal history of malignant neoplasm of other parts of uterus; Z90.710 Acquired absence of both cervix and uterus
CPT/HCPCS: 80053; 80306; 80307; 81025; 85025; 90686; 96372; 97150; 97165; 99285; J1885; J3411

== ENCOUNTER 2022-11-11 20:17 | Emergency (ER) | payer SELFPAY ==
--- NOTE | 2022-11-11 20:20 | XRR_ITS ---
PROCEDURE INFORMATION: Exam: XR Chest Exam date and time: 11/11/2022 8:27 PM Age: 47 years old Clinical indication: Pain; Chest pressure; Additional info: Chest pain TECHNIQUE: Imaging protocol: Radiologic exam of the chest. Views: 1 view. COMPARISON: CT chest diegol w/*[id number] 07/04/2018 6:38 PM FINDINGS: Lungs: No consolidation. Pleural spaces: No pleural effusion. No pneumothorax. Heart/Mediastinum: No cardiomegaly. Bones/joints: Unremarkable. XR/XR chest 1V portable [id number] IMPRESSION: No acute abnormality demonstrated.
[2022-11-11 20:22] VITALS: BP 139/84; PULSE 77; RESP 18; O2SAT 93
--- NOTE | 2022-11-11 20:25 | ECG_ITS ---
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 Measurements Intervals [place] Rate: 74 P: 22 LA: 146 QRS: -28 QRSD: 114 T: -3 QT: 444 QTc: 494 Interpretive Statements SINUS RHYTHM VOLTAGE CRITERIA FOR LVH [MEETS CRITERIA IN ONE OF: R(aVL), S(V1), R(V5), R(V5/V6)+S(V1)] POSSIBLE ANTERIOR MYOCARDIAL INFARCTION , OF INDETERMINATE AGE [30 ms Q WAVE IN V3/V4, OR R < 0.2 mV IN V4] Compared to ECG 08/10/2021 18:27:49 Myocardial infarct finding now present Electronically Signed On 11-12-2022 22:13:48 CDT by Charlene Polanco M.D. [id number] f
--- NOTE | 2022-11-11 20:25 | ECG_ITS ---
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 Measurements Intervals [place] Rate: 74 P: 22 NV: 146 QRS: -28 QRSD: 114 T: -3 QT: 444 QTc: 494 Interpretive Statements SINUS RHYTHM VOLTAGE CRITERIA FOR LVH [MEETS CRITERIA IN ONE OF: R(aVL), S(V1), R(V5), R(V5/V6)+S(V1)] POSSIBLE ANTERIOR MYOCARDIAL INFARCTION , OF INDETERMINATE AGE [30 ms Q WAVE IN V3/V4, OR R < 0.2 mV IN V4] Compared to ECG 08/10/2021 18:27:49 Myocardial infarct finding now present Electronically Signed On 11-12-2022 21:57:50 CDT by Charlene Polanco M.D. [id number] f
--- NOTE | 2022-11-11 20:30 | ED_ITS ---
HPI - Chest Pain General: Chief Complaint: Chest Pain Stated Complaint: CP Time Seen by Provider: 11/11/22 20:18 History of Present Illness: Patient presents here to the ER by EMS with complaints of chest pain, syncope, carpal spasms. Patient states she was having anxiety attack and felt she could not catch her breath She know she passed out and her friends were doing CPR on her. Patient does have carpal spasms and says she has tingling in her face. MD complaint: chest pain and other (Panic attack, syncope) Timing of current episode: episodic and now resolved Prior episodes: Yes Onset: other (During anxiety) Relieving factors: nothing Exacerbating factors: stress Associated symptoms: Reports dyspnea and other (Syncope carpal spasms angling in the face); Deny abdominal pain, fever(s), nausea, palpitations or vomiting Treatment prior to arrival: other (EMS gave her 2 mg Ativan) Review of Systems General: Reports: 10 or more systems reviewed and unremarkable except in HPI and below Const: Denies: fever(s) or chills Eyes: Denies: change in vision ENMT: Denies: throat pain or odynophagia Card: Reports: chest pain; Denies: palpitations, irregular heart rhythm or edema Resp: Reports: dyspnea; Denies: productive cough or non-productive cough GI: Denies: abdominal pain, nausea, vomiting or diarrhea : Denies: flank pain or difficulty voiding Musc: Denies: neck pain or back pain Skin/Breast: Denies: rash or pruritus Neuro: Denies: headache(s), numbness in extremities or weakness in extremities Psych: Reports: anxiety and panic attacks; Denies: depression Endo: Denies: polyuria or polydipsia Duong/Lymph: Denies: easy bruising or easy bleeding All/Imm: Denies: urticaria or throat swelling PFSH ED PFSH: Family History Denies family history of Anesthesia complication Bleeding disorder Social History Smoking and tobacco status: current every day smoker Physical Exam Const: COMMON NORMALS: no acute distress, average body habitus, patient horacio ented x3, no limitations, healthy appearing, alert and well nourished HENMT: COMMON NORMALS: normocephalic, atraumatic, hearing grossly normal stephanie aterally, external ears normal, Normal external nose present and moist oral mucous membranes HEAD & SCALP: normocephalic and atraumatic NOSE: Normal external nose present EXTERNAL EAR: Yes external ears normal Eye: COMMON NORMALS: Equal, round and reactive pupils present and EOMs intact bilaterally PUPIL: Yes Equal, round and reactive pupils present Neck/C-Spine: COMMON NORMALS: full ROM, no lymphadenopathy, supple, no meningeal signs, no JVD and Thyroid normal THYROID: Thyroid normal Chest: COMMONS NORMALS: normal inspection of the chest and normal palpation of entire chest wall Resp: COMMON NORMALS: normal respiratory effort, No retractions, No use of accessory muscles and clear to auscultation bilaterally AUSCULTATION: clear to auscultation bilaterally Cardio: COMMON NORMALS: no JVD, regular rate, regular rhythm, S1 normal heart sound present, S2 normal heart sound present, No gallops present (Cardio), No clicks present (Cardio) and No murmurs present (Cardio) RATE: regular rate RHYTHM: regular rhythm HEART SOUNDS: S1 normal heart sound present and S2 normal heart sound present GI: COMMON NORMALS: Normal to inspection, nondistended, normoactive bowel sounds present, Soft to palpation, non-tender, No hepatosplenomegaly present and no masses PALPATION: Yes Soft to palpation and Yes No hepatosplenomegaly present : COMMON NORMALS: Yes no CVA tenderness BLADDER/KIDNEY EXAM: Yes no CVA tenderness Back/Pelvis: COMMON NORMALS: no CVA tenderness Extremity: OTHER: Mild bilateral carpal spasm Neuro: COMMON NORMALS: patient oriented x3 SENSORIUM/ORIENTATION: Yes alert MENINGEAL SIGNS: Yes no meningeal signs Psych: COMMON NORMALS: mental status grossly normal APPEARANCE: Yes disheveled ATTITUDE: Yes Other attitude/behavior findings present (Psych) (Anxious) Course Vital Signs: Vital signs: Vital Signs Pulse Rate 66 11/11/22 22:13 Respiratory Rate 17 11/11/22 22:13 Blood Pressure 97/63 11/11/22 22:13 Pulse Oximetry 98 11/11/22 22:13 Oxygen Delivery Me thod 11/11/22 22:13 MDM - Chest Pain Medical Decision Making Patient presents to the ER with complaints that she passed out for a panic attack and bystanders started CPR on her. Patient is complaining of chest pain as well as carpal spasms and is under the intoxication of alcohol. Upon further review of history and physical exam as well as lab work that revealed a white count of 11.0 potassium 3.4 sodium 148 AST and ALT of 35 troponin baseline of 12 troponin 2-hour of 16.5 with a delta of 4.5, blood alcohol of 253, an ABG that showed pH was 7.4 PCO2 45 PO2 of 59 and a bicarb of 28.5 it is felt that patient probably had a panic attack and hyperventilated and passed out. Then bystanders performed CPR and until patient regained consciousness. Patient is under the influence of alcohol. Is felt this had a major contributing factor. Patient has a ride home with her parents. Patient will be discharged home to follow-up with her primary care practitioner in the next week. Differential Diagnosis Unlikely acute massive pulmonary embolism, acute respiratory failure, acute myocardial infarction, cardiac arrest or sudden cardiac Lab Data 11/11/22 20:20 11/11/22 20:20 Radiology Impressions Chest X-Ray 11/11/22 20:20 IMPRESSION: No acute abnormality demonstrated. Laboratory Results WBC 11.0 10^3/uL (4.0-10.0) H 11/11/22 20:20 RBC 4.07 10^6/uL (4.1-5.3) L 11/11/22 20:20 Hgb 13.0 g/dL (11.5-15.3) 11/11/22 20:20 Hct 39.7 % (37.0-47.0) 11/11/22 20:20 MCV 97.5 fl (81-99) 11/11/22 20:20 MCH 31.9 pg (28.0-34.0) 11/11/22 20:20 MCHC 32.7 g/dL (30.0-36.0) 11/11/22 20:20 RDW 14.3 % (12.1-15.1) 11/11/22 20:20 Plt Count 243 10^3/cmm (130-400) 11/11/22 20:20 MPV 9.5 fL (7.4-10.4) 11/11/22 20:20 Neut % (Auto) 67.2 % 11/11/22 20:20 Lymph % (Auto) 23.6 % 11/11/22 20:20 Lucas % (Auto) 7.7 % 11/11/22 20:20 Eos % (Auto) 0.8 % 11/11/22 20:20 Baso % (Auto) 0.4 % 11/11/22 20:20 Neut # (Auto) 7.39 10^3/uL (1.8-7.7) 11/11/22 20:20 Lymph # (Auto) 2.6 10^3/uL (0.8-4.8) 11/11/22 20:20 Lucas # (Auto) 0.8 10^3/uL (0.2-0.9) 11/11/22 20:20 Eos # (Auto) 0.1 10^3/uL (0.0-0.8) 11/11/22 20:20 Baso # (Auto) 0.0 10^3/uL (0.0-0.1) 11/11/22 20:20 Nucleated RBC % (auto) 0 % 11/11/22 20:20 Nucleated RBCs # 0.0 /100WBC 11/11/22 20:20 PT 12.70 SECONDS (12.1-14.9) 11/11/22 20:20 INR 0.92 (0.8-1.2) 11/11/22 20:20 Specimen Type Arterial 11/11/22 21:06 Sample Site Radial, right 11/11/22 21:06 ABG pH 7.40 (7.35-7.45) 11/11/22 21:06 ABG pCO2 45.9 mmHg (35-45) H 11/11/22 21:06 ABG pO2 59.5 mmHg (80.0-100.0) L 11/11/22 21:06 ABG HCO3 28.5 mmol/L (22-26) H 11/11/22 21:06 ABG O2 Saturation 89.6 11/11/22 21:06 ABG Base Excess 3.0 mmol/L (-2.0-2.0) H 11/11/22 21:06 Fausto Test Pos 11/11/22 21:06 A-a O2 Gradient 4.5 mmHg (5-10) L 11/11/22 21:06 Hematocrit 40.7 % (37-47) 11/11/22 21:06 Hgb O2 Saturation 85.2 % (95-100) L 11/11/22 21:06 Carboxyhemoglobin 4.1 %THgb (0.4-20.1) 11/11/22 21:06 Methemoglobin 0.8 % (0.4-1.5) 11/11/22 21:06 Total Hemoglobin 13.3 g/dL (12-16) 11/11/22 21:06 Sodium 151.0 mmol/L (131-143) H 11/11/22 21:06 Potassium 3.2 mmol/L (3.5-5.0) L 11/11/22 21:06 Glucose 97.0 mg/dL (70-115) 11/11/22 21:06 Ionized Calcium 1.1 mmol/L (1.1-1.4) 11/11/22 21:06 O2 Delivery Device None 11/11/22 21:06 FiO2 21.0 % 11/11/22 21:06 Core Drill Operator Helper ID [email or web address] 11/11/22 21:06 Sodium 148 mmol/L (136-145) H 11/11/22 20:20 Potassium 3.4 mmol/L (3.5-5.1) L 11/11/22 20:20 Chloride 108 mmol/L (98-107) H 11/11/22 20:20 Carbon Dioxide 25 mmol/L (22-29) 11/11/22 20:20 Anion Gap 18.4 (5-19) 11/11/22 20:20 BUN 11 mg/dL (6-20) 11/11/22 20:20 Creatinine 0.5 mg/dL (0.5-0.9) 11/11/22 20:20 GFR Calculation 133.4 mL/min (90-130) H 11/11/22 20:20 Glucose 96 mg/dL (65-115) 11/11/22 20:20 Calculated Osmolality 305 mOsm/kg (285-295) H 11/11/22 20:20 Calcium 8.5 mg/dL (8.5-10.5) 11/11/22 20:20 Total Bilirubin 0.2 mg/dL (0.15-1.2) 11/11/22 20:20 AST 35 U/L (0-32) H 11/11/22 20:20 ALT 35 U/L (0-33) H 11/11/22 20:20 Alkaline Phosphatase 78 U/L (35-105) 11/11/22 20:20 Troponin T Baseline 12 ng/L (0-10) H 11/11/22 20:20 Troponin T 120 Minute 16.59 ng/L (0-10) H 11/11/22 22:12 Delta Troponin T 4.59 ABS# (0-10) 11/11/22 22:12 Total Protein 6.4 g/dL (6.6-8.7) L 11/11/22 20:20 Albumin 4.2 g/dL (3.5-5.2) 11/11/22 20:20 Globulin 2.2 g/dL (1.3-4.6) 11/11/22 20:20 HCG, Qual Negative (Negative) 11/11/22 20:20 Ethyl Alcohol 253 mg/dL (0-10) H 11/11/22 20:20 Discharge Plan Discharge Patient Disposition: Home Clinical Impression: Chest pain, Alcohol intoxication, Acute hyperventilation Condition: Stable Prescriptions: No Action No Known Home Medications Discharge Orders: Discharge ED (Routine); Ordered 11/11/22 Ordered By: Woodrow Lyon Discharge Diet: Advance as tolerated Discharge Activity: Resume usual activity Patient Instructions: Chest Pain (ED), Hyperventilation (ED) Coding Level of Care Code ED Oracle Application Consultant for Jhonathan Roman
[2022-11-11 20:32] LABS: Basophils % 0.4 %; Eosinophils # 0.1 10^3/uL (0.0-0.8); Eosinophils % 0.8 %; Hematocrit 39.7 % (37.0-47.0); Lymphocytes # 2.6 10^3/uL (0.8-4.8); Lymphocytes % 23.6 %; Mean Corpuscular HGB Conc 32.7 g/dL (30.0-36.0); Mean Corpuscular Hemoglobin 31.9 pg (28.0-34.0); Mean Corpuscular Volume 97.5 fl (81-99); Mean Platelet Volume 9.5 fL (7.4-10.4); Monocytes # 0.8 10^3/uL (0.2-0.9); Monocytes % 7.7 %; Neutrophils # 7.39 10^3/uL (1.8-7.7); Neutrophils % 67.2 %; Nucleated Red Blood Cells % 0 %; Platelet Count 243 10^3/cmm (130-400); Red Blood Count 4.07 10^6/uL (4.1-5.3); Red Cell Distribution Width 14.3 % (12.1-15.1)
[2022-11-11 20:43] LABS: INR 0.92 (0.8-1.2)
[2022-11-11 20:48] LABS: Alanine Aminotransferase 35 U/L (0-33); Albumin Level 4.2 g/dL (3.5-5.2); Alkaline Phosphatase 78 U/L (35-105); Anion Gap 18.4 (5-19); Aspartate Amino Transferase 35 U/L (0-32); Blood Urea Nitrogen 11 mg/dL (6-20); Calcium 8.5 mg/dL (8.5-10.5); Carbon Dioxide 25 mmol/L (22-29); Chloride 108 mmol/L (98-107); Globulin 2.2 g/dL (1.3-4.6); Glomerular Filtration Rate 133.4 mL/min (90-130); Glucose 96 mg/dL (65-115); Osmolality Calculated 305 mOsm/kg (285-295); Potassium 3.4 mmol/L (3.5-5.1); Sodium 148 mmol/L (136-145); Total Bilirubin 0.2 mg/dL (0.15-1.2); Total Protein 6.4 g/dL (6.6-8.7)
[2022-11-11 20:49] LABS: Troponin(5th) Baseline 12 ng/L (0-10)
[2022-11-11 20:50] LABS: Alcohol Level 253 mg/dL (0-10)
[2022-11-11 21:04] LABS: HCG, Serum Qual Negative (Negative)
--- NOTE | 2022-11-11 21:07 | PC.NURSE ---
Lab reported HCG Serum was negative then after 5 minutes reported it was positive. Lab stated they would report it as negative. Dr Lyon was notified of the results.
[2022-11-11 21:15] LABS: ABG PCO2 45.9 mmHg (35-45); Alveolar-Arterial Oxygen Gradi 4.5 mmHg (5-10); Arterial Blood Gas Hematocrit 40.7 % (37-47); Blood Gas Allen Test Pos; Blood Gas Sample Type Arterial; Carboxyhemoglobin 4.1 %THgb (0.4-20.1); HCO3 ABG 28.5 mmol/L (22-26); HGB O2 Sat 85.2 % (95-100); Ionized Calcium Level - ABG 1.1 mmol/L (1.1-1.4); Methemoglobin 0.8 % (0.4-1.5); Oxygen Saturation ABG 89.6; PO2 ABG 59.5 mmHg (80.0-100.0); Potassium Level - ABG 3.2 mmol/L (3.5-5.0); Total Hemoglobin 13.3 g/dL (12-16)
[2022-11-11 21:17] LABS: Blood Gas Sample Site Radial, right
[2022-11-11 22:13] VITALS: BP 97/63; PULSE 66; RESP 17; O2SAT 98
[2022-11-11 22:29] LABS: Troponin 5 2HR 16.59 ng/L (0-10)
[2022-11-11 22:30] VITALS: BP 96/55; PULSE 63; RESP 17; O2SAT 98
[2022-11-11 22:31] LABS: Troponin 5 2HR Delta 4.59 ABS# (0-10)
[2022-11-11 23:04] VITALS: BP 103/79; PULSE 73; RESP 17; O2SAT 97
--- NOTE | 2022-11-16 14:43 | DCPLANNER ---
traffic manager called patient due to no primary care physician - no answer at this time.
== END 2022-11-11 23:06 | disposition home or self-care (01) ==
PROVIDERS: Emergency Provider Emergency Medicine
DX: R07.9 Chest pain, unspecified (principal); F10.129 Alcohol abuse with intoxication, unspecified; Y90.8 Blood alcohol level of 240 mg/100 ml or more; R06.4 Hyperventilation; F17.210 Nicotine dependence, cigarettes, uncomplicated
CPT/HCPCS: 36600; 71045; 80051; 80053; 80307; 82330; 82805; 84484; 84703; 85025; 85610; 93005; 99285

== ENCOUNTER 2023-01-28 08:59 | Emergency (ER) | payer SELFPAY ==
[2023-01-28 09:02] VITALS: BP 136/88; PULSE 85; RESP 16; TEMP 36.7; O2SAT 92; BMI 29.0
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
[2023-01-28 10:06] LABS: Basophils % 0.9 %; Eosinophils # 0.1 10^3/uL (0.0-0.8); Hematocrit 44.4 % (37.0-47.0); Hemoglobin 14.9 g/dL (11.5-15.3); Lymphocytes # 1.4 10^3/uL (0.8-4.8); Lymphocytes % 30.9 %; Mean Corpuscular HGB Conc 33.6 g/dL (30.0-36.0); Mean Corpuscular Hemoglobin 32.7 pg (28.0-34.0); Mean Corpuscular Volume 97.4 fl (81-99); Mean Platelet Volume 9.3 fL (7.4-10.4); Monocytes # 0.6 10^3/uL (0.2-0.9); Monocytes % 12.8 %; Neutrophils # 2.41 10^3/uL (1.8-7.7); Neutrophils % 53.2 %; Nucleated Red Blood Cells % 0 %; Platelet Count 254 10^3/cmm (130-400); Red Blood Count 4.56 10^6/uL (4.1-5.3); Red Cell Distribution Width 14.7 % (12.1-15.1); White Blood Count 4.5 10^3/uL (4.0-10.0)
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
[2023-01-28 10:24] LABS: Alanine Aminotransferase 36 U/L (0-33); Albumin Level 4.9 g/dL (3.5-5.2); Alkaline Phosphatase 91 U/L (35-105); Anion Gap 21.1 (5-19); Aspartate Amino Transferase 51 U/L (0-32); Blood Urea Nitrogen 10 mg/dL (6-20); Calcium 8.9 mg/dL (8.5-10.5); Carbon Dioxide 23 mmol/L (22-29); Chloride 102 mmol/L (98-107); Globulin 2.9 g/dL (1.3-4.6); Glomerular Filtration Rate 240.6 mL/min (90-130); Glucose 99 mg/dL (65-115); Osmolality Calculated 295 mOsm/kg (285-295); Potassium 3.1 mmol/L (3.5-5.1); Sodium 143 mmol/L (136-145); Total Bilirubin 0.3 mg/dL (0.15-1.2); Total Protein 7.8 g/dL (6.6-8.7)
[2023-01-28 10:38] LABS: Alcohol Level 361 mg/dL (0-10)
[2023-01-28 10:41] VITALS: BP 136/88; PULSE 72; RESP 16; O2SAT 93
== END 2023-01-28 10:43 | disposition home or self-care (01) ==
PROVIDERS: Emergency Provider Family Medicine
DX: S02.2XXA Fracture of nasal bones, initial encounter for closed fracture (principal); F17.210 Nicotine dependence, cigarettes, uncomplicated; F10.20 Alcohol dependence, uncomplicated; Y04.2XXA Assault by strike against or bumped into by another person, initial encounter
CPT/HCPCS: 36415; 70450; 70486; 72125; 80053; 80307; 85025; 99284

== ENCOUNTER 2023-12-08 21:43 | Emergency (ER) | payer SELFPAY ==
[2023-12-08] VITALS (10 sets, daily range): BP systolic 146–182; BP diastolic 100–130; PULSE 80–105; RESP 14–22; TEMP 36.4; O2SAT 91–100; BMI 29.0
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
[2023-12-08 22:02] LABS: Basophils # 0.1 10^3/uL (0.0-0.1); Basophils % 0.5 %; Eosinophils # 0.1 10^3/uL (0.0-0.8); Eosinophils % 0.8 %; Lymphocytes # 1.9 10^3/uL (0.8-4.8); Lymphocytes % 19.1 %; Mean Corpuscular HGB Conc 33.6 g/dL (30-55); Mean Corpuscular Hemoglobin 35.1 pg (27-33); Mean Corpuscular Volume 104.3 fl (85-98); Mean Platelet Volume 10.2 fL (7.4-10.4); Neutrophils # 6.81 10^3/uL (1.8-7.7); Neutrophils % 69.3 %; Nucleated Red Blood Cells % 0 %; Platelet Count 214 10^3/cmm (157-399); Red Blood Count 4.22 10^6/uL (3.85-5.65); Red Cell Distribution Width 14.6 % (12.1-15.1); White Blood Count 9.83 10^3/uL (3.29-11.43)
[2023-12-08] MEDS: succinylcholine 20 mg/mL SDV 10mL 100 MG IVP (22:05)
[2023-12-08] MEDS: etomidate 2 mg/mL INJ SDV 10 mL 20 MG IVP (22:05)
[2023-12-08 22:13] LABS: Alanine Aminotransferase 44 U/L (0-33); Albumin Level 4.4 g/dL (3.5-5.2); Alkaline Phosphatase 97 U/L (35-105); Anion Gap 21.9 (5-19); Aspartate Amino Transferase 59 U/L (0-32); Blood Urea Nitrogen 8 mg/dL (6-20); Calcium 8.6 mg/dL (8.5-10.5); Carbon Dioxide 17 mmol/L (22-29); Chloride 103 mmol/L (98-107); Creatinine Clr Calc Pharmacy 151.4522; Globulin 3.2 g/dL (1.3-4.6); Glomerular Filtration Rate 132.8 mL/min (90-130); Glucose 125 mg/dL (65-115); Osmolality Calculated 288 mOsm/kg (285-295); Sodium 139 mmol/L (136-145); Total Bilirubin 0.4 mg/dL (0.15-1.2); Total Protein 7.6 g/dL (6.6-8.7)
[2023-12-08] MEDS: propofol 1,000 MG/100 ML INJ 2.45000000000000018 MG IV (22:14)
[2023-12-08] MEDS: fentaNYL 1,000 MCG/100 ML BAG 2.5 MCG IV (22:19)
[2023-12-08 22:23] LABS: INR 0.89 (0.8-1.2)
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
[2023-12-08 22:24] LABS: Partial Thromboplastin Time 26.6 SECONDS (23.9-36.7)
[2023-12-08] MEDS: lactated ringers 1,000 ML 200 ML IV (22:28)
[2023-12-08 22:30] LABS: Potassium 2.9 mmol/L (3.5-5.1)
[2023-12-08 22:38] LABS: ABG PCO2 36.7 mmHg (35-45); ABG PH Result 7.35 (7.35-7.45); Arterial Blood Gas Hematocrit 47.9 % (37-47); Base Excess ABG -4.5 mmol/L (-2.0-2.0); Blood Gas Allen Test Pos; Blood Gas Operator Identificat glc; Blood Gas Sample Site Radial, left; Blood Gas Sample Type Arterial; Blood Gas Tidal Volume 0.45; HCO3 ABG 20.4 mmol/L (22-26); Oxygen Device VENT; PO2 FiO2 Ratio Arterial Blood 0
[2023-12-08 22:41] LABS: Blood Gas CCRB Time 2230
--- NOTE | 2023-12-08 23:11 | PC.NURSE ---
Propofol sent with air evac.
--- NOTE | 2023-12-09 00:07 | PC.NURSE ---
RSI AND PROCEEDING EVENTS 2204-- 20MG ETOMIDATE 2204-- 100MG SUCCS 2205-- 25@LIP 2213-- PROPOFOL STARTED @5 WITH 40 LOADING DOSE 2218-- FENTANYL STARTED PER PROTOCOL 2223-- SOFT RESTRAINTS APPLIED PER VERBAL OF DR PETERSEN
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
== END 2023-12-09 00:22 ==
PROVIDERS: Emergency Provider Emergency Medicine
DX: T20.29XA Burn of second degree of multiple sites of head, face, and neck, initial encounter (principal); T23.202A Burn of second degree of left hand, unspecified site, initial encounter; T23.201A Burn of second degree of right hand, unspecified site, initial encounter; T22.112A Burn of first degree of left forearm, initial encounter; T31.11 Burns involving 10-19% of body surface with 10-19% third degree burns; W40.8XXA Explosion of other specified explosive materials, initial encounter; Z72.0 Tobacco use; J96.01 Acute respiratory failure with hypoxia
CPT/HCPCS: 31500; 36600; 51702; 71045; 72170; 80053; 82803; 85025; 85610; 85730; 94002; 94799; 96365; 96367; 99291; J0330; J2704; J3010; J3490; J7120

== ENCOUNTER → 2024-03-18 16:30 | Outpatient (BNVA) | payer MEDICAID, SELFPAY | PROVIDERS: PCP Nurse Practitioner; Visit Provider Nurse Practitioner | DX: F43.10 Post-traumatic stress disorder, unspecified (principal) | CPT/HCPCS: 80053; 84443 ==

== ENCOUNTER 2025-01-09 15:55 | Emergency (ER) | payer MEDICAID, SELFPAY ==
[2025-01-09 16:01] VITALS: BP 137/94; PULSE 84; TEMP 37.1; O2SAT 95
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
[2025-01-09] MEDS: HYDROcodone-acetaminophen 5-325 mg Tablet 1 TAB PO (21:53)
[2025-01-09 22:12] VITALS: BP 142/81; PULSE 86; O2SAT 96
== END 2025-01-09 22:14 | disposition home or self-care (01) ==
PROVIDERS: Emergency Provider Student in an Organized Health Care Education/Training Program; PCP Nurse Practitioner
DX: S52.021A Displaced fracture of olecranon process without intraarticular extension of right ulna, initial encounter for closed fracture (principal); Z72.0 Tobacco use; W19.XXXA Unspecified fall, initial encounter
CPT/HCPCS: 29105; 73080; 99283; J9999

== ENCOUNTER → 2025-01-20 13:34 | Outpatient (BNVA) | payer MEDICAID, SELFPAY | PROVIDERS: PCP Nurse Practitioner; Visit Provider Orthopaedic Surgery | DX: M25.521 Pain in right elbow (principal); S52.021A Displaced fracture of olecranon process without intraarticular extension of right ulna, initial encounter for closed fracture; W01.0XXA Fall on same level from slipping, tripping and stumbling without subsequent striking against object, initial encounter | CPT/HCPCS: 73080 ==

== ENCOUNTER → 2025-02-10 10:02 | Outpatient (BNVA) | payer SELFPAY | PROVIDERS: PCP Nurse Practitioner; Visit Provider Orthopaedic Surgery | DX: S52.021D Displaced fracture of olecranon process without intraarticular extension of right ulna, subsequent encounter for closed fracture with routine healing (principal); X58.XXXD Exposure to other specified factors, subsequent encounter | CPT/HCPCS: 73080 ==

== ENCOUNTER 2025-02-10 11:00 | Outpatient (CLI) | payer SELFPAY | END 2025-02-10 11:01 | disposition home or self-care (01) | LOC: SPT 11:00 | PROVIDERS: PCP Nurse Practitioner; Visit Provider Orthopaedic Surgery | DX: Z46.89 Encounter for fitting and adjustment of other specified devices (principal); S52.021D Displaced fracture of olecranon process without intraarticular extension of right ulna, subsequent encounter for closed fracture with routine healing; X58.XXXD Exposure to other specified factors, subsequent encounter | CPT/HCPCS: L3761 ==